=== PATIENT | male | born 1990 | race Caucasian/White ===

== ENCOUNTER 2019-12-21 18:02 | Outpatient (CLI) | payer MEDICAID ==
--- NOTE | 2019-12-22 11:57 | XRAY Report ---
Reason: RT ANKLE JOINT PAIN Procedure Date: 12/21/2019 Accession Number: [id number] / [id number] Procedure: XR - Ankle 3 View RT CPT Code: Final Report FULL RESULT: EXAM: RIGHT ANKLE RADIOGRAPHY 3 VIEWS EXAM DATE: 12/21/2019. CLINICAL HISTORY: Right ankle joint pain. COMPARISON: None. TECHNIQUE: AP, oblique and lateral views. FINDINGS: Bones: Patchy osteopenia. No fracture Joints: No subluxation. No tibial-talar joint effusion. Soft Tissues: Anterior and lateral selling. IMPRESSION: Patchy osteopenia. No fracture or dislocation. Mild anterior and lateral soft tissue swelling. [facility]
== END 2019-12-21 18:03 | disposition home or self-care (01) ==
LOC: DI 18:02
PROVIDERS: ATTEND Family Medicine
DX: M85.871 Other specified disorders of bone density and structure, right ankle and foot (principal); M79.89 Other specified soft tissue disorders